=== PATIENT | female | born 2000 | race Caucasian/White ===

== ENCOUNTER 2025-04-28 09:36 | Emergency (ER) | payer OTHER ==
[~2025-04-28] VITALS: Ht 177.8 cm; Wt 59.0 kg
[~2025-04-28 09:36] MED LIST: LOESTRIN1 EAC1 PO; OMEPRAZOLE20 MG; SINGULAIR4 M1
[2025-04-28] MEDS ORDERED: SODIUM CHLORIDE FLUSH 10 ML SYR IV PRN (10:00)
[2025-04-28 10:07] VITALS: TEMP 98.7
[2025-04-28 10:08] LABS: BASOPHILS % 0.6 % (0.0-1.0); EOSINOPHILS % 1.5 % (0.0-6.0); LYMPHOCYTES % 45.3 % (18.0-39.1); MONOCYTES % 7.9 % (4.4-11.3); NEUTROPHILS % 43.5 % (38.7-80.0); RED CELL DISTRIBUTION WIDTH 11.7 % (11.7-14.4)
[2025-04-28 10:39] LABS: EST GLOMERULAR FILTRATION RATE 114 ML/MIN (>=60)
[2025-04-28 12:22] VITALS: PULSE 85; RESP 18
[2025-04-28 12:32] VITALS: BP 103/75; PULSE 85; RESP 16; O2SAT 100
== END 2025-04-28 12:32 | disposition home or self-care (01) ==
LOC: ER 09:39
DX: R00.2 Palpitations (principal); R07.89 Other chest pain; D64.9 Anemia, unspecified; K21.9 Gastro-esophageal reflux disease without esophagitis; F41.9 Anxiety disorder, unspecified
CPT/HCPCS: 36415; 71046; 80053; 84484; 84702; 85025; 85379; 93005; 94760; 99284